=== PATIENT | female | born 1955 ===

== ENCOUNTER 2018-02-20 22:30 | Inpatient (IN) | payer OTHER ==
[2018-02-20 22:30] VITALS: BMI 29.2
--- NOTE | 2018-02-21 00:09 | C.PDOC ---
History Of Present Illness 62 year old female presents to the ER after having an episode of palpitations and double vision at home, associated with dry mouth. Patient was watching TV and talking on the phone when the symptoms suddenly began and last for approx imately 10 minutes. Patient reports the symptoms have improved on arrival to ER, she had a similar episode a year ago, she saw her PMD and believes she was told she has a murmur but is unsure. Denies PMHx, chest pain, dizziness, weakness, numbness, headache, or use of contacts/glasses. Patient has had multiple prior visits at [facility] for psych, she has a Hx of schizoaffective disorder, bipolar disorder, and Hx of ETOH, cocaine, and THC abuse. Time Seen by Provider: 02/20/18 23:05 Chief Complaint (Nursing): Palpitations History Per: Patient History/Exam Limitations: no limitations Onset/Duration Of Symptoms: Hrs Current Symptoms Are (Timing): Better Recent travel outside of the [place]: No Past Medical History Reviewed: Historical Data, Nursing Documentation, Vital Signs Vital Signs: Last Vital Signs Temp 98.0 F 02/20/18 22:43 Pulse 95 H 02/20/18 22:43 Resp 18 02/20/18 22:43 BP 134/82 02/20/18 22:43 Pulse Ox 99 02/20/18 22:43 - Medical History PMH: Anxiety, Asthma (no meds), Diverticulitis, Gastritis, Hypercholesterolemia (no meds) Family History: States: Unknown Family Hx - Social History Hx Tobacco Use: No Hx Alcohol Use: No Hx Substance Use: No - Immunization History Hx Tetanus Toxoid Vaccination: No Hx Influenza Vaccination: No Hx Pneumococcal Vaccination: No Review Of Systems Except As Marked, All Systems Reviewed And Found Negative. Constitutional: Negative for: Fever, Chills Eyes: Positive for: Vision Change (Double) ENT: Positive for: Other (Dry mouth) Cardiovascular: Positive for: Palpitations. Negative for: Chest Pain Respiratory: Negative for: Cough, Shortness of Breath Gastrointestinal: Negative for: Nausea, Vomiting Physical Exam - Physical Exam Appears: Non-toxic, No Acute Distress Skin: Normal Color, Warm, Dry Head: Atraumatic, Normacephalic Eye(s): bilateral: Normal Inspection, PERRL, EOMI Oral Mucosa: Moist Neck: Normal, Supple Chest: Symmetrical, No Tenderness Cardiovascular: Rhythm Regular Respiratory: Normal Breath Sounds, No Rales, No Rhonchi, No Wheezing Gastrointestinal/Abdominal: Soft, No Tenderness Back: No CVA Tenderness Extremity: Normal ROM (x4) Neurological/Psych: Other (See NIH) ED Course And Treatment - Laboratory Results Result Diagrams: 02/21/18 00:42 02/21/18 00:42 ECG: Interpreted By Me, Viewed By Me ECG Rhythm: Sinus Tachycardia Rate From EC O2 Sat by Pulse Oximetry: 99 (Room air) Pulse Ox Interpretation: Normal NIHSS Stroke Scale - Date/Time Evaluation Performed Date Performed: 02/21/18 Time Performed: 00:00 When Was NIHSS Performed: Baseline - How Severe is the Stroke Level of Consciousness: 0=Alert LOC to Questions: 0=Both comments correct LOC to commands: 0=Obeys both correctly Best Gaze: 0=Normal Visual: 0=No visual loss Facial: 0=Normal Motor Arm - Left: 0=No drift Motor Arm - Right: 0=No drift Motor Leg - Left: 0=No drift Motor Leg - Right: 0=No drift Limb Ataxia: 0=Absent Sensory: 0=Normal Best Language: 0=No aphasia Dysarthia: 0=Normal articulation Extinction & Inattention (Neglect): 0=Normal, no object Score: 0 NIHSS Stroke Scale 2 - Date/Time Evaluation Performed Date Performed: 02/21/18 Time Performed: 01:19 When Was NIHSS Performed: Re-evaluation - How Severe is the Stroke Level of Consciousness: 0=Alert LOC to Questions: 0=Both comments correct LOC to commands: 0=Obeys both correctly Best Gaze: 0=Normal Visual: 0=No visual loss Facial: 0=Normal Motor Arm - Left: 0=No drift Motor Arm - Right: 0=No drift Motor Leg - Left: 0=No drift Motor Leg - Right: 0=No drift Limb Ataxia: 0=Absent Sensory: 0=Normal Best Language: 0=No aphasia Dysarthia: 0=Normal articulation Extinction & Inattention (Neglect): 0=Normal, no object Score: 0 Progress - Re-Evaluation Re-evaluation Note: 02/21/18 00:[address] townsend neuro oncall 02/21/18 01:19 D/W DR Wali BALTAZAR WILL ADMIT - Data Reviewed Data Reviewed: Lab, Diagnostic imaging, EKG, Old records rTPA Inclusion/Exclusion - Refusal of Treatment Patient Refused Treatment: No - Inclusion Criteria for Altepase Patient is 18 years or Older: Yes The Clinical Diagnosis of Ischemic Stroke That is Causing a Potentially Disabling Neurological Deficit: No Time of Onset is Well Established to be Less Than 270 Minute Before Treatment Would Begin: Yes Risk/Benefit Discussed With Patient/Family Member Present: Yes - Exclusion Criteria for Altepase Uncontrolled Hypertension at Time of Treatment (Systolic BP above 185 or Diastolic BP above 110 mmHg): No Active Internal Bleeding: No Known Bleeding Diathesis Including but Not Limited to: Platelets Below 100,000/mm,PTT Above 40 sec After Heparin Use, Current Use of Oral Anitcoagulant With INR Greater Than 1.7 or PT Greater Than 15 secs: No Evidence of an Intracranial Hemorrhage: No Evidence of Major Acute Infarct With Signs Greater Than 1/3 MCA Territory: No Suspicion of Subarachnoid Hemorrhage on Pretreatment Evaluation Even if CT Head Negative For Hemorrhage: No - Warning to TPA With Conditions Following Conditions Weighed Against Anticipated Benefit: Yes Condition: Stroke Serevity Too Mild Medical Decision Making Medical Decision Making: Plan: * CT head * EKG * Blood work * CXR * Aspirin * IV fluids Disposition Counseled Patient/Family Regarding: Studies Performed, Diagnosis - Disposition Disposition: HOSPITALIZED Disposition Time: 01:19 Condition: STABLE - POA Present On Arrival: None - Clinical Impression Clinical Impression: Palpitations, Double vision, TIA (transient ischemic attack) - Scribe Statement The provider has reviewed the documentation as recorded by the Scribe Mata Romero All medical record entries made by the Scribe were at my direction and personally dictated by me. I have reviewed the chart and agree that the record accurately reflects my personal performance of the history, physical exam, medical decision making, and the department course for this patient. I have also personally directed, reviewed, and agree with the discharge instructions and disposition.
[2018-02-21] MEDS: Sodium Chloride 0.9% 1,000 ML IV SCH ×3 (00:20→21:27)
[2018-02-21] MEDS ORDERED: Sodium Chloride 0.9% 1,000 ML ONE (00:42)
[2018-02-21 00:47] LABS: BASO % 0.3 % (0.0-2.0); EOS # 0.2 K/uL (0.0-0.7); EOS % 1.6 % (0.0-4.0); HEMOGLOBIN 14.9 g/dL (11.0-16.0); LYMPH # 2.6 K/uL (1.0-4.3); LYMPH % 23.6 % (20.0-40.0); MEAN CORPUSCULAR HEMOGLOBIN 29.8 pg (27.0-31.0); MEAN CORPUSCULAR HGB CONC 33.9 g/dL (33.0-37.0); MEAN PLATELET VOLUME 8.1 fL (7.2-11.7); MONO # 0.7 K/uL (0.0-0.8); MONO % 6.3 % (0.0-10.0); NEUT # 7.4 K/uL (1.8-7.0); NEUT % 68.2 % (50.0-75.0); RED CELL DISTRIBUTION WIDTH 13.4 % (11.5-14.5); WHITE BLOOD COUNT 10.8 K/uL (4.8-10.8)
[2018-02-21 01:08] LABS: PROTHROMBIN TIME 10.5 SECONDS (9.7-12.2)
[2018-02-21 01:17] LABS: ALB/GLOB RATIO 1.4 (1.0-2.1); ALBUMIN 4.9 g/dL (3.5-5.0); ALT/SGPT 24 U/L (9-52); AST/SGOT 24 U/L (14-36); BLOOD UREA NITROGEN 15 mg/dL (7-17); CALCIUM 9.5 mg/dl (8.6-10.4); GFR NON-AFRICAN AMERICAN > 60; HDL CHOLESTEROL 79 mg/dL (30-70)
[2018-02-21] MEDS ORDERED: Aspirin 325 mg EC Tablets PO STA (01:27)
[2018-02-21 01:28] LABS: LDL CHOLESTEROL 125 mg/dL (0-129)
--- NOTE | 2018-02-21 09:54 | RAD ---
Date of service: 02/21/2018 HISTORY: Code Stroke COMPARISON: 08/02/2014 TECHNIQUE: Chest PA and lateral FINDINGS: LUNGS: Upper lobe granulomatous changes. Diffuse increased interstitial lung markings. Bibasilar breast shadows. PLEURA: No significant pleural effusion identified. No pneumothorax apparent. CARDIOVASCULAR: No aortic atherosclerotic calcification present Grossly preserved. OSSEOUS STRUCTURES: No significant abnormalities. VISUALIZED UPPER ABDOMEN: Normal. OTHER FINDINGS: None. IMPRESSION: Upper lobe granulomatous changes. Diffuse increased interstitial lung markings. Bibasilar breast shadows.
[2018-02-21] MEDS: Enoxaparin 40 mg Syringe SC SCH (10:19)
[2018-02-21] MEDS: Pantoprazole 40 mg EC Tab PO SCH (10:19)
--- NOTE | 2018-02-21 10:54 | CT ---
Date of service: 02/21/2018 PROCEDURE: CT HEAD WITHOUT CONTRAST. HISTORY: palpitations DOUBLE VISION COMPARISON: None available. TECHNIQUE: Axial computed tomography images were obtained through the head/brain without intravenous contrast. Radiation dose: Total exam DLP = 978.62 mGy-cm. This CT exam was performed using one or more of the following dose reduction techniques: Automated exposure control, adjustment of the mA and/or kV according to patient size, and/or use of iterative reconstruction technique. FINDINGS: HEMORRHAGE: No intracranial hemorrhage. BRAIN: No mass effect or edema. Scattered focal lucencies in the subcortical and periventricular white matter suggestive for chronic microvascular ischemic change. VENTRICLES: Unremarkable. No hydrocephalus. CALVARIUM: Unremarkable. PARANASAL SINUSES: Unremarkable as visualized. No significant inflammatory changes. MASTOID AIR CELLS: Unremarkable as visualized. No inflammatory changes. OTHER FINDINGS: Streak artifact in the posterior fossa limits evaluation IMPRESSION: No acute intracranial abnormality. Chronic microvascular ischemic change. Streak artifact in the posterior fossa limits evaluation. If symptoms persist, consider correlation with MRI. These findings were preliminarily reported at 1:08 a.m. on 02/21/[address] Rd Cueva from [facility].
--- NOTE | 2018-02-21 14:41 | CP.PCM.HP ---
Past Patient History - Infectious Disease Hx of Infectious Diseases: None - Past Social History Smoking Status: Unknown If Ever Smoked - CARDIAC Hx Hypercholesterolemia: Yes (no meds) - PULMONARY Hx Asthma: Yes (no meds) - MUSCULOSKELETAL/RHEUMATOLOGICAL Hx Falls: No - GASTROINTESTINAL Hx Diverticulitis: Yes Hx Gastritis: Yes - PSYCHIATRIC Hx Anxiety: Yes Hx Substance Use: Yes - SURGICAL HISTORY Hx Surgeries: No - ANESTHESIA Hx Anesthesia: No Meds Allergies/Adverse Reactions: Allergies Allergy/AdvReac Type Severity Reaction Status Date / Time Penicillins Allergy Verified 02/20/18 22:40 Physical Exam - Constitutional Appears: Well - Head Exam Head Exam: ATRAUMATIC, NORMAL INSPECTION, NORMOCEPHALIC - Eye Exam Eye Exam: EOMI, Normal appearance, PERRL Pupil Exam: NORMAL ACCOMODATION, PERRL - ENT Exam ENT Exam: Mucous Membranes Moist, Normal Exam - Neck Exam Neck exam: Positive for: Normal Inspection - Respiratory Exam Respiratory Exam: Decreased Breath Sounds - Cardiovascular Exam Cardiovascular Exam: REGULAR RHYTHM, +S1, +S2 - GI/Abdominal Exam GI & Abdominal Exam: Diminished Bowel Sounds, Soft - Rectal Exam Rectal Exam: Deferred Results - Vital Signs Recent Vital Signs: Last Vital Signs Temp 98.1 F 02/21/18 07:00 Pulse 90 02/21/18 07:00 Resp 20 02/21/18 07:00 BP 111/75 02/21/18 07:00 Pulse Ox 97 02/21/18 07:00 - Labs Result Diagrams: 02/21/18 00:42 02/21/18 00:42 Labs: Laboratory Results - last 24 hr 02/21/18 02/21/18 02/21/18 00:42 00:42 00:42 WBC 10.8 RBC 5.00 Hgb 14.9 Hct 44.0 MCV 88.0 MCH 29.8 MCHC 33.9 RDW 13.4 Plt Count 309 MPV 8.1 Neut % (Auto) 68.2 Lymph % (Auto) 23.6 [place] % (Auto) 6.3 Eos % (Auto) 1.6 Baso % (Auto) 0.3 Neut # (Auto) 7.4 H Lymph # (Auto) 2.6 [place] # (Auto) 0.7 Eos # (Auto) 0.2 Baso # (Auto) 0.0 PT 10.5 INR 1.0 APTT 31 Sodium 144 Potassium 4.2 Chloride 106 Carbon Dioxide 27 Anion Gap 15 BUN 15 Creatinine 0.7 Est GFR ( Amer) > 60 Est GFR (Non-Af Amer) > 60 Random Glucose 99 Hemoglobin A1c Calcium 9.5 Total Bilirubin 0.4 AST 24 ALT 24 Alkaline Phosphatase 135 H Troponin I < 0.0120 Total Protein 8.5 H Albumin 4.9 Globulin 3.6 Albumin/Globulin Ratio 1.4 Triglycerides 151 H D Cholesterol 228 H LDL Cholesterol Direct 125 HDL Cholesterol 79 H Blood Type Antibody Screen 02/21/18 02/21/18 00:42 00:42 WBC RBC Hgb Hct MCV MCH MCHC RDW Plt Count MPV Neut % (Auto) Lymph % (Auto) [place] % (Auto) Eos % (Auto) Baso % (Auto) Neut # (Auto) Lymph # (Auto) [place] # (Auto) Eos # (Auto) Baso # (Auto) PT INR APTT Sodium Potassium Chloride Carbon Dioxide Anion Gap BUN Creatinine Est GFR ( Amer) Est GFR (Non-Af Amer) Random Glucose Hemoglobin A1c 5.6 Calcium Total Bilirubin AST ALT Alkaline Phosphatase Troponin I Total Protein Albumin Globulin Albumin/Globulin Ratio Triglycerides Cholesterol LDL Cholesterol Direct HDL Cholesterol Blood Type O POSITIVE Antibody Screen Negative
--- NOTE | 2018-02-21 14:57 | CP.PCM.CON ---
History of Present Illness - History of Present Illness History of Present Illness: Neurology consult dictated. Patient with possible carotid artery occlusion Not tia or stroke. Recommend: 1. CTA head and neck with contrast. Dr. Durand Past Patient History - Infectious Disease Hx of Infectious Diseases: None - Past Social History Smoking Status: Unknown If Ever Smoked - CARDIAC Hx Hypercholesterolemia: Yes (no meds) - PULMONARY Hx Asthma: Yes (no meds) - MUSCULOSKELETAL/RHEUMATOLOGICAL Hx Falls: No - GASTROINTESTINAL Hx Diverticulitis: Yes Hx Gastritis: Yes - PSYCHIATRIC Hx Anxiety: Yes Hx Substance Use: Yes - SURGICAL HISTORY Hx Surgeries: No - ANESTHESIA Hx Anesthesia: No Meds Allergies/Adverse Reactions: Allergies Allergy/AdvReac Type Severity Reaction Status Date / Time Penicillins Allergy Verified 02/20/18 22:40 - Medications Medications: Current Medications Aspirin (Aspirin Chewable) 81 mg PO DAILY [facility] Enoxaparin Sodium (Lovenox) 40 mg SC DAILY [facility] Last Admin: 02/21/18 10:19 Dose: 40 mg Sodium Chloride (Sodium Chloride 0.9%) 1,000 mls @ 100 mls/hr IV .Q10H [facility] Last Admin: 02/21/18 00:20 Dose: 100 mls/hr Pantoprazole Sodium (Protonix Ec Tab) 40 mg PO DAILY [facility] Last Admin: 02/21/18 10:19 Dose: 40 mg Rosuvastatin Calcium (Crestor) 10 mg PO HS [facility] Results - Vital Signs Recent Vital Signs: Last Vital Signs Temp 98.1 F 02/21/18 07:00 Pulse 90 02/21/18 07:00 Resp 20 02/21/18 07:00 BP 111/75 02/21/18 07:00 Pulse Ox 97 02/21/18 07:00 - Labs Result Diagrams: 02/21/18 00:42 02/21/18 00:42 Labs: Laboratory Results - last 24 hr 02/21/18 02/21/18 02/21/18 00:42 00:42 00:42 WBC 10.8 RBC 5.00 Hgb 14.9 Hct 44.0 MCV 88.0 MCH 29.8 MCHC 33.9 RDW 13.4 Plt Count 309 MPV 8.1 Neut % (Auto) 68.2 Lymph % (Auto) 23.6 [place] % (Auto) 6.3 Eos % (Auto) 1.6 Baso % (Auto) 0.3 Neut # (Auto) 7.4 H Lymph # (Auto) 2.6 [place] # (Auto) 0.7 Eos # (Auto) 0.2 Baso # (Auto) 0.0 PT 10.5 INR 1.0 APTT 31 Sodium 144 Potassium 4.2 Chloride 106 Carbon Dioxide 27 Anion Gap 15 BUN 15 Creatinine 0.7 Est GFR ( Amer) > 60 Est GFR (Non-Af Amer) > 60 Random Glucose 99 Hemoglobin A1c Calcium 9.5 Total Bilirubin 0.4 AST 24 ALT 24 Alkaline Phosphatase 135 H Troponin I < 0.0120 Total Protein 8.5 H Albumin 4.9 Globulin 3.6 Albumin/Globulin Ratio 1.4 Triglycerides 151 H D Cholesterol 228 H LDL Cholesterol Direct 125 HDL Cholesterol 79 H Blood Type Antibody Screen 02/21/18 02/21/18 00:42 00:42 WBC RBC Hgb Hct MCV MCH MCHC RDW Plt Count MPV Neut % (Auto) Lymph % (Auto) [place] % (Auto) Eos % (Auto) Baso % (Auto) Neut # (Auto) Lymph # (Auto) [place] # (Auto) Eos # (Auto) Baso # (Auto) PT INR APTT Sodium Potassium Chloride Carbon Dioxide Anion Gap BUN Creatinine Est GFR ( Amer) Est GFR (Non-Af Amer) Random Glucose Hemoglobin A1c 5.6 Calcium Total Bilirubin AST ALT Alkaline Phosphatase Troponin I Total Protein Albumin Globulin Albumin/Globulin Ratio Triglycerides Cholesterol LDL Cholesterol Direct HDL Cholesterol Blood Type O POSITIVE Antibody Screen Negative
[2018-02-21] MEDS ORDERED: Iodixanol 320 MG/ML 100 ML BOTTLE IV ONE (16:27)
--- NOTE | 2018-02-21 17:51 | CT ---
Date of service: 02/21/2018 PROCEDURE: CT Angiography of the neck and brain. HISTORY: tia COMPARISON: None available. TECHNIQUE: 100 mL of Visipaque [address] angiography of the neck and intracranial arteries was performed. Coronal and sagittal maximum intensity projection reformated images were generated. Radiation dose: Total exam DLP = 535.04 mGy-cm. This CT exam was performed using one or more of the following dose reduction techniques: Automated exposure control, adjustment of the mA and/or kV according to patient size, and/or use of iterative reconstruction technique. FINDINGS: RIGHT CAROTID ARTERIES: Common Carotid Artery: Normal. Carotid Bifurcation: Atherosclerotic calcification without evidence of significant stenosis Internal Carotid Artery:Normal. External Carotid Artery (proximal branches): Normal. LEFT CAROTID ARTERIES: Common Carotid Artery: Normal. Carotid Bifurcation: No significant stenosis Internal Carotid Artery:Normal. External Carotid Artery (proximal branches): Normal. VERTEBRAL ARTERIES: Right Vertebral Artery: The right vertebral artery is small in size. Left Vertebral Artery: Normal. INTERNAL CEREBRAL ARTERIES: Unremarkable. The skull base, petrous, cavernous and supraclinoid segments are bilaterally widely patent. ANTERIOR CEREBRAL ARTERIES: Unremarkable. A1 and A2 segments are widely patent. Smaller distal branches unremarkable, as visualized. MIDDLE CEREBRAL ARTERIES: Unremarkable. M1 and M2 segments are widely patent. Perisylvian branches grossly symmetric. POSTERIOR CIRCULATION: Basilar Artery: Unremarkable. Distal Vertebral Arteries: Unremarkable. Posterior Cerebral Arteries: Unremarkable. Posterior Inferior Cerebellar Arteries: Unremarkable. ANEURYSM/ VASCULAR MALFORMATIONS: None. OTHER FINDINGS: None. IMPRESSION: No evidence of arterial occlusion or critical stenosis.
[2018-02-21 18:54] LABS: BARBITURATES, UR NEGATIVE (NEGATIVE); BENZODIAZEPINES, UR NEGATIVE (NEGATIVE); OPIATES, UR NEGATIVE (NEGATIVE); PHENCYCLIDINE, UR NEGATIVE (NEGATIVE)
--- NOTE | 2018-02-21 20:57 | CARD ---
APPROVED REPORT Date of service: 02/21/2018 EXAM: Two-dimensional and M-mode echocardiogram with Doppler and color Doppler. Other Information Quality : Good[employer] : INDICATION CVA/TIA Palpitations 2D DIMENSIONS IVSd0.8 (0.7-1.1cm)Aortic Root (2D)2.9 (2.0-3.7cm) LVDd3.6 (3.9-5.9cm)PWd0.8 (0.7-1.1cm) LA Tslmge20 (18-58mL)LVDs2.4 (2.5-4.0cm) FS (%) 33.8 %LVEF (%)70.0 (>50%) LVEF (Buck's)69.37 %IVC0.00 cm M-Mode DIMENSIONS RVDd1.97 (2.1-3.2cm)Left Atrium (MM)3.51 (2.5-4.0cm) IVSd0.70 (0.7-1.1cm)Aortic Root2.87 (2.2-3.7cm) LVDd4.56 (4.0-5.6cm)Aortic Cusp Exc.1.85 (1.5-2.0cm) PWd0.67 (0.7-1.1cm)FS (%) 48 % LVDs2.37 (2.0-3.8cm)LVEF (%)79 (>50%) Mitral Valve MV E Bhkgcstu96.7cm/sMV A Bzfzqzyq87.6cm/sE/A ratio1.3 TDI Lateral E' Peak V12.55cm/sMedial E' Peak V9.90cm/sE/Lateral E'7.8 E/Medial E'9.9 Tricuspid Valve TR Peak Qebvetdl326fc/sTR Peak Gr.[id number] LEFT VENTRICLE The left ventricle is normal size. There is normal left ventricular wall thickness. Left ventricle systolic function is normal. The Ejection Fraction is >70%. There is normal LV segmental wall motion. The left ventricular diastolic function is normal. RIGHT VENTRICLE The right ventricle is normal size. There is normal right ventricular wall thickness. The right ventricular systolic function is normal. ATRIA The left atrium size is normal. The right atrium size is normal. The interatrial septum is intact with no evidence for an atrial septal defect. AORTIC VALVE The aortic valve is normal in structure. No aortic regurgitation is present. There is no aortic valvular stenosis. There is no aortic valvular vegetation. MITRAL VALVE The mitral valve is normal in structure. There is no evidence of mitral valve prolapse. There is no mitral valve stenosis. Mitral regurgitation is mild. TRICUSPID VALVE The tricuspid valve is normal in structure. There is mild tricuspid regurgitation. Right ventricular systolic pressure is estimated at less than 30 mmHg. There is no pulmonary hypertension. PULMONIC VALVE The pulmonic valve is not well visualized. There is no pulmonic valvular regurgitation. GREAT VESSELS The aortic root is normal in size. PERICARDIAL EFFUSION There is no significant pericardial effusion. <Conclusion> Left ventricle systolic function is normal. The Ejection Fraction is >70%. No aortic regurgitation is present. Mitral regurgitation is mild. There is mild tricuspid regurgitation. There is no pulmonary hypertension. There is no pulmonic valvular regurgitation.
--- NOTE | 2018-02-21 23:06 | CON ---
DATE: 02/21/2018 REASON FOR CONSULTATION: Palpitations and double vision. HISTORY OF PRESENT ILLNESS: The patient is a 62-year-old female who denies any known prior cardiac history, is on no medications at home, presented because of what she described as double vision and episodes of palpitations. The patient denies any dizziness or syncope and is unaware of any history of falls in the past. SOCIAL HISTORY: Nonsmoker, nondrinker. She is currently not working, but she used to work as a rn staffing. MEDICATIONS: Aspirin 81 mg once a day, Crestor 10 mg once a day, Lovenox 40 mg subcutaneously once a day, normal saline at 100 mL an hour, and Protonix 40 mg once a day. REVIEW OF SYSTEMS: No fever or chills. No nausea or vomiting. PHYSICAL EXAMINATION: GENERAL: The patient is a middle-aged female, who does not appear to be in any distress. VITAL SIGNS: Blood pressure 111/75, heart rate 90, temperature 98.1, respirations 20. HEENT: Normocephalic. CHEST: Clear. HEART: S1, S2 regular. ABDOMEN: Soft. EXTREMITIES: No edema. LABORATORY DATA: SMA-7 today is entirely within normal limits. Hemoglobin A1c is 5.6. Total cholesterol 228, triglycerides 151, both are elevated. PT, PTT, and INR are within normal limits. Hemoglobin and hematocrit are 14.9 and 44. White count and platelet count are within normal limits. No EKG is found in the chart or in the [employer] database. Head CT scan without contrast, no acute intracranial findings. Chronic microvascular ischemic changes. Chest x-ray; upper lobe granulomatous changes. Diffuse increased interstitial lung markings. Bibasilar breast shadows. ASSESSMENT: 1. History of palpitations and double vision. 2. Hyperlipidemia. RECOMMENDATIONS: Continue current aspirin, Crestor, and subcutaneous Lovenox. Obtain 12-lead EKG and review the echocardiographic study performed today. Obtain a D-dimer and urine for drug screen. Andrez Mcmahon MD
--- NOTE | 2018-02-22 06:24 | CON ---
DATE: 02/21/2018 NEUROLOGY CONSULTATION REFERRING PHYSICIAN: Perla Tamayo MD HISTORY OF PRESENT ILLNESS: This is a 62-year-old right-handed woman, who presented with blurriness of vision for the past 24 hours which resolved yesterday. This was accompanied with an episode of palpitation, associated with as well. The patient was watching TV, talking on the phone, symptoms then began, lasted for ten minutes. There is no aphasia, there is no headache, there is no weakness, there is no facial droop, this has never happened before. Of note, the patient has been going through tremendous amount of stress with her daughter and says that she relates this to life stressor. The patient did not take aspirin at home. REVIEW OF SYSTEMS: Negative for chest pain, dizziness, weakness, numbness, headache, aphasia, dysarthria, or prior episodes. PAST MEDICAL HISTORY: She has some history of schizoaffective disorder; bipolar history; alcohol, cocaine, abuse; she also has anxiety, diverticulitis, gastritis, and hypercholesteremia. FAMILY HISTORY: There is no family history. SOCIAL HISTORY: She drinks alcohol regularly, does not smoke cigarettes. ALLERGIES: SHE IS ALLERGIC TO PENICILLIN. PHYSICAL EXAMINATION: VITAL SIGNS: Today, temperature 98, pulse 95, respiratory rate 18, blood pressure 134/80, pulse ox 99%. NEUROLOGICAL: Completely normal. There were no deficits. The patient walked well with tandem gait. Cerebellar with no dysmetria. DTRs were +2 upper and lower bilaterally. Mini mental status is 30/30. LABORATORY DATA: As follows. White count 10.8, hemoglobin 14.9, hematocrit 44, platelets 309. Calcium normal. Chemistry was normal except for triglycerides which were 151 and 228 and HDL of 79. CT of the head was done, it was completely normal. IMPRESSION: This is a 62-year-old woman who has a complaint on neurological exam, and I do not feel she had a transient ischemic attack. The patient, however, obtained a CTA of the head and neck before discharge and she should also be on a statin considering her high cholesterol profile. PLAN: Discussed with the patient. Thank you for this interesting consult. Karishma Durand MD [facility] # [id number]
[2018-02-22] MEDS: Pantoprazole 40 mg EC Tab PO SCH (09:30)
[2018-02-22] MEDS: Enoxaparin 40 mg Syringe SC SCH (09:31)
--- NOTE | 2018-02-22 18:27 | CP.PCM.PN ---
Subjective - Date & Time of Evaluation Date of Evaluation: 02/22/18 Time of Evaluation: 12:30 - Subjective Subjective: clinically same Objective - Vital Signs/Intake and Output Vital Signs (last 24 hours): Temp Pulse Resp BP Pulse Ox 97.6 F 72 20 110/70 99 02/22/18 15:00 02/22/18 15:00 02/22/18 15:00 02/22/18 15:00 02/22/18 15:00 - Medications Medications: Current Medications Aspirin (Aspirin Chewable) 81 mg PO DAILY [facility] Last Admin: 02/22/18 09:30 Dose: 81 mg Diphenhydramine HCl (Benadryl) 25 mg PO Q6 PRN PRN Reason: Itching / Pruritus Last Admin: 02/22/18 14:12 Dose: 25 mg Enoxaparin Sodium (Lovenox) 40 mg SC DAILY [facility] Last Admin: 02/22/18 09:31 Dose: 40 mg Sodium Chloride (Sodium Chloride 0.9%) 1,000 mls @ 100 mls/hr IV .Q10H [facility] Last Admin: 02/21/18 21:27 Dose: 100 mls/hr Influenza Virus Vaccine (Fluzone Quad [id number]) 60 mcg IM .ONCE ONE Stop: 02/23/18 12:01 Pantoprazole Sodium (Protonix Ec Tab) 40 mg PO DAILY [facility] Last Admin: 02/22/18 09:30 Dose: 40 mg Pneumococcal Polyvalent Vaccine (Pneumovax 23 Vaccine) 0.5 ml IM .ONCE ONE Stop: 02/23/18 12:01 Rosuvastatin Calcium (Crestor) 10 mg PO [facility] Last Admin: 02/21/18 21:29 Dose: 10 mg - Labs Labs: 02/21/18 00:42 02/21/18 00:42 PT 10.5 SECONDS (9.7-12.2) 02/21/18 00:42 INR 1.0 02/21/18 00:42 APTT 31 SECONDS (21-34) 02/21/18 00:42 - Constitutional Appears: Well - Head Exam Head Exam: ATRAUMATIC, NORMAL INSPECTION, NORMOCEPHALIC - Eye Exam Eye Exam: EOMI, Normal appearance, PERRL Pupil Exam: NORMAL ACCOMODATION, PERRL - ENT Exam ENT Exam: Mucous Membranes Moist, Normal Exam - Neck Exam Neck Exam: Full ROM, Normal Inspection. absent: Lymphadenopathy - Respiratory Exam Respiratory Exam: Decreased Breath Sounds - Cardiovascular Exam Cardiovascular Exam: REGULAR RHYTHM, +S1, +S2 - GI/Abdominal Exam GI & Abdominal Exam: Soft, Diminished Bowel Sounds - Rectal Exam Rectal Exam: Deferred
--- NOTE | 2018-02-22 19:33 | PN ---
DATE: 02/22/2018 SUBJECTIVE: The patient denies any chest pain, double vision, or dizziness. PHYSICAL EXAMINATION: VITAL SIGNS: Blood pressure 99/57, heart rate 64, temperature 97.9, respirations 20. HEENT: Normocephalic. CHEST: Clear. HEART: S1 and S2, regular. EXTREMITIES: No edema. LABORATORY DATA: Urine drug screen is negative. D-Dimer is less than 200. The patient's chest, head and neck CT angio shows no evidence of aortic occlusion or critical stenosis. Echocardiographic study revealed normal ejection fraction, mild mitral insufficiency, no pulmonary hypertension. Yesterday's EKG revealed sinus tachycardia at the rate of 102, left anterior fascicular block. ASSESSMENT: 1. History of palpitations and double vision. 2. Hyperlipidemia. RECOMMENDATIONS: Continue Aspirin 81 mg once a day, Crestor 10 mg once a day, subcutaneous Lovenox at 40 mg once a day. TSH level is within normal limits and the patient is clinically euthyroid. Andrez Mcmahon MD
--- NOTE | 2018-02-22 19:40 | CARD ---
APPROVED REPORT Date of service: 02/21/2018 EKG Measurement Heart [id number] [id number] <Conclusion> Normal sinus rhythm Left anterior fascicular block Abnormal ECG
--- NOTE | 2018-02-22 19:53 | CARD ---
APPROVED REPORT Date of service: 02/20/2018 EKG Measurement Heart [id number] MA [id number] <Conclusion> Sinus tachycardia Left anterior fascicular block Abnormal ECG
[2018-02-23] MEDS: Sodium Chloride 0.9% 1,000 ML IV SCH ×2 (02:28→12:26)
[2018-02-23] MEDS: Pantoprazole 40 mg EC Tab PO SCH (10:06)
[2018-02-23] MEDS: Enoxaparin 40 mg Syringe SC SCH (10:07)
[2018-02-23] MEDS ORDERED: Pneumococcal 23-Valent Vaccine IM ONE (12:00)
[2018-02-23] MEDS ORDERED: Influenza Vaccine 60 MCG/0.5 ML SYR (3 yr & up) IM ONE (12:00)
[2018-02-23 15:53] VITALS: BP 121/70; PULSE 68; RESP 20; TEMP 98.3; O2SAT 100
--- NOTE | 2018-02-23 16:07 | CP.PCM.PN ---
Subjective - Date & Time of Evaluation Date of Evaluation: 02/23/18 Time of Evaluation: 12:00 - Subjective Subjective: clinically same Objective - Vital Signs/Intake and Output Vital Signs (last 24 hours): Temp Pulse Resp BP Pulse Ox 98.3 F 68 20 121/70 100 02/23/18 15:00 02/23/18 15:00 02/23/18 15:00 02/23/18 15:00 02/23/18 15:00 Intake and Output: 02/23/18 02/23/18 06:59 18:59 Intake Total 940 Balance 940 - Medications Medications: Current Medications Aspirin (Aspirin Chewable) 81 mg PO DAILY [facility] Last Admin: 02/23/18 10:07 Dose: 81 mg Diphenhydramine HCl (Benadryl) 25 mg PO Q6 PRN PRN Reason: Itching / Pruritus Last Admin: 02/23/18 13:21 Dose: 25 mg Enoxaparin Sodium (Lovenox) 40 mg SC DAILY [facility] Last Admin: 02/23/18 10:07 Dose: 40 mg Sodium Chloride (Sodium Chloride 0.9%) 1,000 mls @ 100 mls/hr IV .Q10H [facility] Last Admin: 02/23/18 12:26 Dose: Not Given Pantoprazole Sodium (Protonix Ec Tab) 40 mg PO DAILY [facility] Last Admin: 02/23/18 10:06 Dose: 40 mg Rosuvastatin Calcium (Crestor) 10 mg PO HS [facility] Last Admin: 02/22/18 20:59 Dose: 10 mg - Labs Labs: 02/21/18 00:42 02/21/18 00:42 PT 10.5 SECONDS (9.7-12.2) 02/21/18 00:42 INR 1.0 02/21/18 00:42 APTT 31 SECONDS (21-34) 02/21/18 00:42 - Constitutional Appears: Well - Head Exam Head Exam: ATRAUMATIC, NORMAL INSPECTION, NORMOCEPHALIC - Eye Exam Eye Exam: EOMI, Normal appearance, PERRL Pupil Exam: NORMAL ACCOMODATION, PERRL - ENT Exam ENT Exam: Mucous Membranes Moist, Normal Exam - Neck Exam Neck Exam: Full ROM, Normal Inspection. absent: Lymphadenopathy - Respiratory Exam Respiratory Exam: Decreased Breath Sounds - Cardiovascular Exam Cardiovascular Exam: REGULAR RHYTHM, +S1, +S2 - GI/Abdominal Exam GI & Abdominal Exam: Soft, Diminished Bowel Sounds - Rectal Exam Rectal Exam: Deferred
--- NOTE | 2018-02-23 17:38 | CP.PCM.PN ---
Objective - Vital Signs/Intake and Output Vital Signs (last 24 hours): Temp Pulse Resp BP Pulse Ox 98.3 F 68 20 121/70 100 02/23/18 15:00 02/23/18 15:00 02/23/18 15:00 02/23/18 15:00 02/23/18 15:00 Intake and Output: 02/23/18 02/23/18 06:59 18:59 Intake Total 940 Balance 940 - Medications Medications: Current Medications Aspirin (Aspirin Chewable) 81 mg PO DAILY [facility] Last Admin: 02/23/18 10:07 Dose: 81 mg Diphenhydramine HCl (Benadryl) 25 mg PO Q6 PRN PRN Reason: Itching / Pruritus Last Admin: 02/23/18 13:21 Dose: 25 mg Enoxaparin Sodium (Lovenox) 40 mg SC DAILY [facility] Last Admin: 02/23/18 10:07 Dose: 40 mg Sodium Chloride (Sodium Chloride 0.9%) 1,000 mls @ 100 mls/hr IV .Q10H [facility] Last Admin: 02/23/18 12:26 Dose: Not Given Pantoprazole Sodium (Protonix Ec Tab) 40 mg PO DAILY [facility] Last Admin: 02/23/18 10:06 Dose: 40 mg Rosuvastatin Calcium (Crestor) 10 mg PO HS [facility] Last Admin: 02/22/18 20:59 Dose: 10 mg - Labs Labs: 02/21/18 00:42 02/21/18 00:42 PT 10.5 SECONDS (9.7-12.2) 02/21/18 00:42 INR 1.0 02/21/18 00:42 APTT 31 SECONDS (21-34) 02/21/18 00:42
--- NOTE | 2018-02-23 19:18 | PN ---
DATE: 02/23/2018 SUBJECTIVE: The patient denies any chest pain, blurry vision or dizziness. PHYSICAL EXAMINATION: VITAL SIGNS: Blood pressure 100/58, heart rate 73, temperature 98.2, respirations 18. HEENT: Normocephalic. CHEST: Clear. HEART: S1, S2 regular. EXTREMITIES: No edema. ASSESSMENT: 1. Sinus tachycardia on admission. 2. Abnormal EKG with evidence of left anterior fascicular block. 3. Hyperlipidemia. RECOMMENDATIONS: Continue current aspirin 81 mg once a day, Crestor at 10 mg once a day. No further cardiac workup is indicated at this time. Andrez Mcmahon MD
== END 2018-02-23 18:12 | disposition home or self-care (01) | DRG 310 ==
LOC: C.ER 22:30 → C.6T 02-21 01:23
PROVIDERS: ADMIT Internal Medicine Nephrology; ATTEND Internal Medicine Nephrology
DX: R00.0 Tachycardia, unspecified (principal); I44.4 Left anterior fascicular block; J45.909 Unspecified asthma, uncomplicated; E78.5 Hyperlipidemia, unspecified; F25.9 Schizoaffective disorder, unspecified

== ENCOUNTER 2018-03-20 08:40 | Emergency (ER) | payer OTHER ==
[2018-03-20 08:41] VITALS: BMI 29.2
[2018-03-20 08:53] VITALS: BP 99/66; PULSE 75; RESP 18; TEMP 98.2; O2SAT 98
--- NOTE | 2018-03-20 09:27 | C.PDOC ---
History Of Present Illness 62 year old female presents to the ED for evaluation of nonproductive cough and sinus congestion and pressure for 4 days. Patient notes she has a PMD but has not visited PMD regarding current symptoms. Denies ear pain, sore throat, fever, nausea, vomiting, and any other associated symptoms. Time Seen by Provider: 03/20/18 09:08 Chief Complaint (Nursing): Cough, Cold, Congestion History Per: Patient History/Exam Limitations: no limitations Onset/Duration Of Symptoms: Days Current Symptoms Are (Timing): Still Present Past Medical History Reviewed: Historical Data, Nursing Documentation, Vital Signs Vital Signs: Last Vital Signs Temp 98.2 F 03/20/18 08:51 Pulse 75 03/20/18 08:51 Resp 18 03/20/18 08:51 BP 99/66 L 03/20/18 08:51 Pulse Ox 98 03/20/18 08:51 - Medical History PMH: Anxiety, Asthma (no meds), Diverticulitis, Gastritis, Hypercholesterolemia (no meds) Family History: States: Unknown Family Hx - Social History Hx Tobacco Use: No Hx Alcohol Use: Yes (denies) Hx Substance Use: Yes (denies) - Immunization History Hx Tetanus Toxoid Vaccination: No Hx Influenza Vaccination: No Hx Pneumococcal Vaccination: No Review Of Systems Constitutional: Negative for: Fever ENT: Positive for: Nose Congestion, Other (sinus pressure.). Negative for: Ear Pain, Throat Pain (sore.) Respiratory: Positive for: Cough (nonproductive. ) Gastrointestinal: Negative for: Nausea, Vomiting Physical Exam - Physical Exam Appears: Well, Non-toxic, No Acute Distress, Other (comfortable.) Skin: Normal Color, Warm, Dry Head: Atraumatic, Normacephalic Eye(s): bilateral: Normal Inspection Ear(s): Bilateral: Normal Nose: Normal, No Discharge, Tenderness (over the frontal sinus. ) Oral Mucosa: Moist Throat: Normal, No Erythema, No Exudate Neck: Normal ROM, Supple Chest: Symmetrical, No Deformity Cardiovascular: Rhythm Regular, No Rhythm Irregular Respiratory: Normal Breath Sounds, No Rales, No Rhonchi, No Wheezing, Other (occasional cough.) Neurological/Psych: Oriented x3, Normal Speech ED Course And Treatment O2 Sat by Pulse Oximetry: 98 (RA) Pulse Ox Interpretation: Normal Medical Decision Making Medical Decision Making: Plan: -Shobha Laceyes Progress/Update: Patient stable for discharge home. Prescribed Sudafed and Tessalon Perles. Disposition Counseled Patient/Family Regarding: Diagnosis, Need For Followup, Rx Given - Disposition Referrals: Dora Asher MD [Medical Doctor] - Disposition: HOME/ ROUTINE Disposition Time: 09:20 Condition: STABLE Additional Instructions: FOLLOW UP WITH YOUR DOCTOR IN 1-2 DAYS USE MEDICATIONS DIRECTED/NEEDED DRINK PLENTY OF FLUIDS RETURN TO ER IF SYMPTOMS WORSEN Prescriptions: Benzonatate [Tessalon Perles] 100 mg PO BID PRN #15 sgl PRN Reason: Cough Pseudoephedrine [Sudafed] 60 mg PO Q6 PRN #12 tab PRN Reason: Nasal Congestion Instructions: Viral Upper Respiratory Infection, Adult (DC) Forms: [employer] (Australian) Print Language: [place] - Clinical Impression Clinical Impression: Viral upper respiratory infection - Scribe Statement The provider has reviewed the documentation as recorded by the Scribe (Linette Solo) Provider Attestation: All medical record entries made by the Scribe were at my direction and personally dictated by me. I have reviewed the chart and agree that the record accurately reflects my personal performance of the history, physical exam, medical decision making, and the department course for this patient. I have also personally directed, reviewed, and agree with the discharge instructions and disposition.
== END 2018-03-20 09:24 | disposition home or self-care (01) ==
LOC: C.ER 08:40
DX: J06.9 Acute upper respiratory infection, unspecified (principal)

== ENCOUNTER 2018-05-09 08:58 | Outpatient (CLI) | payer OTHER | END 2018-05-09 08:59 | disposition home or self-care (01) | LOC: C.MAMMO 08:58 | DX: Z12.31 Encounter for screening mammogram for malignant neoplasm of breast (principal) ==

== ENCOUNTER 2018-09-05 12:10 | Emergency (ER) | payer OTHER ==
[2018-09-05 12:38] VITALS: BMI 26.4
[2018-09-05 12:42] VITALS: BP 111/72; PULSE 74; RESP 18; TEMP 98.4; O2SAT 96
--- NOTE | 2018-09-05 13:12 | C.PDOC ---
History Of Present Illness 62 year old female presents to ED with complaint of occasional tingling in her upper back area for 2 weeks. Patient denies any tingling currently. She also complains of occasional pain down her left arm that is digitally reproducible. Patient has been previously worked up in the ED for chest pain with negative finding. She denies rash, heavy lifting,trauma, fall, or weakness. Time Seen by Provider: 09/05/18 13:07 Chief Complaint (Nursing): Back Pain History Per: Patient History/Exam Limitations: no limitations Onset/Duration Of Symptoms: Other (2 weeks) Current Symptoms Are (Timing): Still Present Quality Of Discomfort: "Pain" Associated Symptoms: denies: Incontinence, New Weakness Past Medical History Reviewed: Historical Data, Nursing Documentation, Vital Signs Vital Signs: Last Vital Signs Temp 98.4 F 09/05/18 12:32 Pulse 74 09/05/18 12:32 Resp 18 09/05/18 12:32 BP 111/72 09/05/18 12:32 Pulse Ox 96 09/05/18 12:32 Primary Care Provider: Dora Asher - Medical History PMH: Anxiety, Asthma, Diverticulitis, Gastritis, Hypercholesterolemia Surgical History: No Surg Hx Family History: States: Unknown Family Hx - Social History Hx Tobacco Use: No Hx Alcohol Use: No (denies) Hx Substance Use: No (denies) - Immunization History Hx Tetanus Toxoid Vaccination: No Hx Influenza Vaccination: Yes Hx Pneumococcal Vaccination: No Review Of Systems Constitutional: Negative for: Fever, Chills, Weakness Genitourinary: Negative for: Incontinence Musculoskeletal: Positive for: Arm Pain (left arm ) Skin: Negative for: Rash Neurological: Positive for: Numbness (tingling in the upper back ). Negative for: Weakness Physical Exam - Physical Exam Appears: Non-toxic, No Acute Distress Skin: Normal Color, Warm, Dry, No Rash Head: Atraumatic, Normacephalic Neck: Normal ROM, No Midline Cervical Tenderness, No Paracervical Tenderness, Supple Chest: Symmetrical, No Deformity, No Tenderness Cardiovascular: Rhythm Regular, No Murmur Respiratory: No Accessory Muscle Use, No Rales, No Rhonchi, No Wheezing Gastrointestinal/Abdominal: Soft, No Tenderness Back: No Vertebral Tenderness, No Paraspinal Tenderness Extremity: Normal ROM, No Tenderness, Capillary Refill (<2 seconds), No Deformity Extremity: Bilateral: Atraumatic, Normal Color And Temperature, Normal ROM Pulses: Left Radial: Normal, Right Radial: Normal Neurological/Psych: Oriented x3, Normal Speech, Normal Cognition, Normal Motor, Normal Sensation Gait: Steady ED Course And Treatment ECG: Interpreted By Me ECG Rhythm: Sinus Rhythm ECG Interpretation: Normal Rate From EC O2 Sat by Pulse Oximetry: 96 (in RA) Pulse Ox Interpretation: Normal Progress Note: EKG ordered for patient. Medical Decision Making Medical Decision Making: vague tingling upper back discomfort is occasional not now normal ekg no rash opt f/u. Disposition Doctor Will See Patient In The: Office Counseled Patient/Family Regarding: Studies Performed, Diagnosis - Disposition Referrals: [facility] [Outside] [facility] [place] [Outside] [facility] [Outside] Dora Asher MD [Medical Doctor] - Disposition: HOME/ ROUTINE Disposition Time: 13:12 Condition: GOOD Additional Instructions: normal EKG no rash outpatient follow-up as needed. Forms: General Discharge Instructions, [facility] (Niuean) - Clinical Impression Clinical Impression: Discomfort of back - Scribe Statement The provider has reviewed the documentation as recorded by the Scribe (Shannan Thakur) All medical record entries made by the Scribe were at my direction and personally dictated by me. I have reviewed the chart and agree that the record accurately reflects my personal performance of the history, physical exam, medical decision making, and the department course for this patient. I have also personally directed, reviewed, and agree with the discharge instructions and disposition.
--- NOTE | 2018-09-07 01:12 | CARD ---
APPROVED REPORT Date of service: 09/05/2018 EKG Measurement Heart [id number] <Conclusion> Normal sinus rhythm Left anterior fascicular block Abnormal ECG
== END 2018-09-05 13:20 | disposition home or self-care (01) ==
LOC: C.ER 12:10
DX: M54.89 Other dorsalgia (principal)